=== PATIENT | female | born 1955 | race American Indian/Alaskan Native ===

== ENCOUNTER 2021-04-25 13:55 | Outpatient (CLI) | payer BC | END 2021-04-25 13:56 | disposition home or self-care (01) | LOC: CT 13:55 | PROVIDERS: ATTEND Nurse Practitioner Family | DX: R79.89 Other specified abnormal findings of blood chemistry (principal); R91.8 Other nonspecific abnormal finding of lung field | CPT/HCPCS: 71275; 82565 ==

== ENCOUNTER 2021-10-18 09:14 | Outpatient (CLI) | payer BC | END 2021-10-18 09:15 | disposition home or self-care (01) | LOC: BICULT 09:14 | PROVIDERS: ATTEND Student in an Organized Health Care Education/Training Program | DX: R74.01 Elevation of levels of liver transaminase levels (principal); K80.20 Calculus of gallbladder without cholecystitis without obstruction; K82.8 Other specified diseases of gallbladder | CPT/HCPCS: 76705 ==

== ENCOUNTER 2021-10-31 12:59 | Outpatient (CLI) | payer BC | END 2021-10-31 13:00 | disposition home or self-care (01) | LOC: RAD 12:59 | PROVIDERS: ATTEND Internal Medicine Pulmonary Disease | DX: R06.00 Dyspnea, unspecified (principal) | CPT/HCPCS: 71046 ==

== ENCOUNTER 2021-11-13 13:02 | Outpatient (CLI) | payer BC ==
[2021-11-13 13:42] LABS: #Basophils 0.1 10x3/uL (0.0-0.2); #Eosinphils 0.4 10x3/uL (0.0-0.5); #Monocytes 0.6 10x3/uL (0.0-1.1); %Basophils 1.7 % (0.0-2.0); %Eosinophils 6.1 % (0.0-6.0); %Lymphocytes 36.6 % (18.0-47.0); %Monocytes 9.3 % (0.0-10.0); Hemoglobin 12.1 g/dL (12.0-15.5); Mean Corpuscular HGB CONC 32.7 g/dL (32.0-36.0); Mean Corpuscular Hemoglobin 29.2 pg (27.0-33.0); Mean Corpuscular Volume 89.2 fl (81.6-98.3); Mean Platelet Volume 9.3 fl (7.4-10.4); Platelet Count 334 10x3/uL (150-450); RBC Distribution Width 13.8 % (11.5-14.5); Red Blood Cell (RBC) Count 4.15 10x6/uL (3.90-5.03); White Blood Cell (WBC) Count 6.6 10x3/uL (3.5-10.5)
[2021-11-13 14:04] LABS: ALT (SGPT) 62 U/L (8-55); AST (SGOT) 43 U/L (5-34); Alkaline Phosphatase 173 U/L (40-110); Anion Gap 14 mmol/L (10-20); BUN (Urea Nitrogen) 19 mg/dL (9.8-20.1); Bilirubin, Total 0.4 mg/dL (0.2-1.2); Calc. Creatinine Clearance 0 mL/min (70-130); Calcium 9.2 mg/dL (7.8-10.44); Carbon Dioxide 24 mmol/L (23-31); Chloride 107 mmol/L (98-107); Estimated GFR 80; Globulin 2.7 g/dL (2.4-3.5); Glucose 101 mg/dL (80-115); Potassium 4.7 mmol/L (3.5-5.1); Protein, Total 6.7 g/dL (5.8-8.1); Sodium 140 mmol/L (136-145)
== END 2021-11-13 13:03 | disposition home or self-care (01) ==
LOC: LABBT 13:02
PROVIDERS: ATTEND Specialist
DX: Z01.812 Encounter for preprocedural laboratory examination (principal); K80.50 Calculus of bile duct without cholangitis or cholecystitis without obstruction; Z20.822 Contact with and (suspected) exposure to COVID-19
CPT/HCPCS: 80053; 85025; 87811

== ENCOUNTER 2021-11-16 07:44 | Inpatient (IN) | payer BC, MEDICARE ==
[2021-11-15 11:03] VITALS: BMI 32.2
[2021-11-16] MEDS ORDERED: Ketorolac Tromethamine 30 MG/ML VIAL ONE ×2 (08:23→13:21)
[2021-11-16] MEDS ORDERED: Acetaminophen 500 MG TAB ONE (08:23)
[2021-11-16] MEDS ORDERED: Iopamidol 15 ML ONE (10:22)
[2021-11-16] MEDS ORDERED: Bupivacaine/Epinephrine 0.25% 30 ML VIAL ONE (10:22)
[2021-11-16] MEDS ORDERED: fentaNYL Citrate/PF 100 MCG/2 ML SYRINGE ONE (10:23)
[2021-11-16] MEDS ORDERED: Sodium Chloride 0.9% 100 ML ONE (10:35)
[2021-11-16] MEDS ORDERED: CEFAZOLIN 2 GM VIAL ONE (10:35)
[2021-11-16] MEDS ORDERED: PROPOFOL 200 MG/20 ML VIAL ONE (10:44)
[2021-11-16] MEDS ORDERED: Rocuronium Bromide 10 MG/ML (10ML VIAL) ONE (10:44)
[2021-11-16] MEDS ORDERED: Lidocaine 1% PF 5 ML VIAL ONE (10:44)
[2021-11-16] MEDS ORDERED: Glycopyrrolate 0.2 MG/ML 5 ML SYRINGE ONE (10:44)
[2021-11-16] MEDS ORDERED: Dexamethasone 20 MG/5 ML VIAL ONE (10:44)
[2021-11-16] MEDS ORDERED: Ondansetron PF 4 MG/2 ML Vial ONE ×2 (10:44→12:31)
[2021-11-16] MEDS ORDERED: Meperidine HCl/PF 25 MG/ML VIAL ONE (12:49)
[2021-11-16] MEDS ORDERED: hydrALAZINE 20 MG/ML VIAL SLOW IVP PRN (12:54)
[2021-11-16] MEDS ORDERED: Dextrose 50% Abboject 50 ML SYRINGE SLOW IVP PRN (12:54)
[2021-11-16] MEDS ORDERED: Ondansetron PF 4 MG/2 ML Vial IVP PRN (12:54)
[2021-11-16] MEDS ORDERED: Morphine 4 MG/ML VIAL SLOW IVP PRN (12:54)
[2021-11-16] MEDS ORDERED: Dextrose 5% in Water 1,000 ML IV PRN (12:54)
[2021-11-16] MEDS ORDERED: Calcium Carbonate 500 MG ChewTAB PO PRN (12:54)
[2021-11-16] MEDS ORDERED: Morphine 2 MG/ML VIAL SLOW IVP PRN (12:54)
[2021-11-16] MEDS ORDERED: Promethazine HCl 25 MG/ML VIAL IM PRN (12:54)
[2021-11-16] MEDS ORDERED: Mag-Al 1200 mg/1200 mg/30 ML UDCUP PO PRN (12:54)
[2021-11-16] MEDS ORDERED: Albuterol Sulfate 2.5 mg/0.5 ml Neb NEB PRN (13:15)
[2021-11-16] MEDS: D5 1/2 NS w/20 mEq KCL 1,000 ML IV SCH ×2 (15:43→23:18)
[2021-11-16] MEDS: Ketorolac Tromethamine 30 MG/ML VIAL IVP SCH ×2 (17:52→23:17)
[2021-11-16] MEDS: HYDROcodone/Acetaminophen 10/325 mg Tablet PO PRN (20:15)
[2021-11-16] MEDS: Famotidine 20 MG TAB PO SCH (20:16)
[2021-11-16] MEDS: Famotidine/PF 20 mg/2ml Vial SLOW IVP SCH (20:20)
[2021-11-16] MEDS ORDERED: Rosuvastatin 10 MG TAB PO SCH (21:00)
[2021-11-16] MEDS ORDERED: FLUoxetine HCl 20 MG CAP PO SCH (21:00)
[2021-11-17] MEDS: Ketorolac Tromethamine 30 MG/ML VIAL IVP SCH ×3 (04:57→18:04)
[2021-11-17 05:10] LABS: #Lymphocytes 1.7 thou/uL (1.20-3.40); #Monocytes 0.9 thou/uL (0.11-0.59); %Basophils 0.1 % (0.0-1.0); %Eosinophils 0.1 % (0.0-10.0); %Lymphocytes 14.9 % (21.0-51.0); %Monocytes 7.7 % (0.0-10.0); %Neutrophils 77.3 % (42.0-75.0); Hemoglobin 11.5 g/dL (12.0-16.0); Mean Corpuscular HGB CONC 32.5 g/dL (32.0-36.0); Mean Corpuscular Hemoglobin 30.2 pg (27.0-31.0); Mean Corpuscular Volume 92.7 fL (78.0-98.0); Mean Platelet Volume 7.3 fL (7.4-10.4); Platelet Count 303 thou/uL (130-400); RBC Distribution Width 12.7 % (11.5-14.5); Red Blood Cell (RBC) Count 3.82 mill/uL (4.20-5.40); White Blood Cell (WBC) Count 11.6 thou/uL (4.8-10.8)
[2021-11-17 05:28] LABS: ALT (SGPT) 44 U/L (8-55); AST (SGOT) 38 U/L (5-34); Albumin 3.3 g/dL (3.4-4.8); Alkaline Phosphatase 154 U/L (40-110); Anion Gap 12 mmol/L (10-20); BUN (Urea Nitrogen) 12 mg/dL (9.8-20.1); Bilirubin, Total 0.4 mg/dL (0.2-1.2); Calc. Creatinine Clearance 105 mL/min (70-130); Calcium 8.7 mg/dL (7.8-10.44); Carbon Dioxide 25 mmol/L (23-31); Chloride 107 mmol/L (98-107); Estimated GFR 84; Globulin 2.6 g/dL (2.4-3.5); Glucose 170 mg/dL (80-115); Potassium 4.8 mmol/L (3.5-5.1); Protein, Total 5.9 g/dL (5.8-8.1); Sodium 139 mmol/L (136-145)
[2021-11-17] MEDS: D5 1/2 NS w/20 mEq KCL 1,000 ML IV SCH (07:40)
[2021-11-17] MEDS ORDERED: Iopamidol 30 ML ONE (07:53)
[2021-11-17] MEDS ORDERED: Indomethacin 50 MG SUPP ONE (07:55)
[2021-11-17] MEDS ORDERED: Bupropion 150 MG XL TAB PO SCH (09:00)
[2021-11-17] MEDS ORDERED: Loratadine 10 MG TAB PO SCH (09:00)
[2021-11-17] MEDS: Famotidine 20 MG TAB PO SCH (09:14)
[2021-11-17] MEDS: Famotidine/PF 20 mg/2ml Vial SLOW IVP SCH (09:14)
[2021-11-17] MEDS ORDERED: Fentanyl 100 MCG/2 ML VIAL ONE ×2 (09:24→11:02)
[2021-11-17] MEDS ORDERED: Levofloxacin 500 mg/D5W 100 ml Premix Bag ONE (09:28)
[2021-11-17] MEDS ORDERED: Ondansetron PF 4 MG/2 ML Vial ONE (09:39)
[2021-11-17] MEDS ORDERED: Dexamethasone 20 MG/5 ML VIAL ONE (09:39)
[2021-11-17] MEDS ORDERED: ePHEDrine 50 MG/ML VIAL ONE (09:39)
[2021-11-17] MEDS ORDERED: Glycopyrrolate 0.2 MG/ML 5 ML SYRINGE ONE (09:39)
[2021-11-17] MEDS ORDERED: Rocuronium Bromide 10 MG/ML (10ML VIAL) ONE (09:39)
[2021-11-17] MEDS ORDERED: PROPOFOL 200 MG/20 ML VIAL ONE (09:39)
[2021-11-17] MEDS ORDERED: Lidocaine 1% PF 5 ML VIAL ONE (09:39)
[2021-11-17] MEDS ORDERED: Meperidine HCl/PF 25 MG/ML VIAL SLOW IVP PRN (10:57)
[2021-11-17] MEDS ORDERED: Promethazine HCl 25 MG/ML VIAL IM PRN (10:57)
[2021-11-17] MEDS ORDERED: Ondansetron HCl/PF 4 MG/2 ML Vial IVP PRN (10:57)
[2021-11-17] MEDS ORDERED: Promethazine HCl 25 MG/ML VIAL IVPB PRN (10:57)
[2021-11-17] MEDS ORDERED: Promethazine HCl 25 MG/ML VIAL ONE (11:13)
[2021-11-17] MEDS ORDERED: Ibuprofen 200 MG TAB PO PRN (11:23)
[2021-11-17] MEDS ORDERED: Non-Formulary Item 1 EACH (Fluticasone Propionate [Flonase Allergy Relief] 9.9 ML Bottle) EA NARE PRN (11:23)
[2021-11-17] MEDS ORDERED: Ibuprofen 800 MG TAB PO PRN (12:07)
[2021-11-17] MEDS ORDERED: Fluticasone Propionate Nasal Spray 16 gm Bottle NASAL PRN (12:08)
[2021-11-17] MEDS: HYDROcodone/Acetaminophen 10/325 mg Tablet PO PRN (16:09)
[2021-11-17 20:09] VITALS: BP 126/78; TEMP 98.2
[2021-11-18] MEDS ORDERED: Aspirin 325 MG TAB PO SCH (09:00)
== END 2021-11-17 19:40 | disposition home or self-care (01) | DRG 419 ==
LOC: SDC 07:44 → SURG A 13:05 → OBSVTOIN 13:10
PROVIDERS: ADMIT Specialist; ATTEND Specialist
PROC: 0FT44ZZ Resection of Gallbladder, Percutaneous Endoscopic Approach (ICD-10-PCS; principal; 2021-11-16)
PROC: 0DB94ZX Excision of Duodenum, Percutaneous Endoscopic Approach, Diagnostic (ICD-10-PCS; 2021-11-16)
PROC: BF131ZZ Fluoroscopy of Gallbladder and Bile Ducts using Low Osmolar Contrast (ICD-10-PCS; 2021-11-16)
PROC: 0F7C8ZZ Dilation of Ampulla of Vater, Via Natural or Artificial Opening Endoscopic (ICD-10-PCS; 2021-11-17)
PROC: BF101ZZ Fluoroscopy of Bile Ducts using Low Osmolar Contrast (ICD-10-PCS; 2021-11-17)
PROC: 0FC98ZZ Extirpation of Matter from Common Bile Duct, Via Natural or Artificial Opening Endoscopic (ICD-10-PCS; 2021-11-17)
PROC: 0DB98ZX Excision of Duodenum, Via Natural or Artificial Opening Endoscopic, Diagnostic (ICD-10-PCS; 2021-11-17)
PROC: 0DB68ZX Excision of Stomach, Via Natural or Artificial Opening Endoscopic, Diagnostic (ICD-10-PCS; 2021-11-17)
DX: K80.64 Calculus of gallbladder and bile duct with chronic cholecystitis without obstruction (principal); Z20.822 Contact with and (suspected) exposure to COVID-19; K29.70 Gastritis, unspecified, without bleeding; K26.9 Duodenal ulcer, unspecified as acute or chronic, without hemorrhage or perforation; F32.A Depression, unspecified; E78.5 Hyperlipidemia, unspecified; K29.80 Duodenitis without bleeding; Z79.899 Other long term (current) drug therapy; Z90.710 Acquired absence of both cervix and uterus
CPT/HCPCS: 36415; 47532; 74330; 80053; 85025; 88304; 88305; 88331; 88342; C1713; J0690; J1100; J1885; J1956; J2175; J2405; J2550; J2704; J2710; J3010; J3480; J3490; Q9967

== ENCOUNTER 2024-06-15 12:48 | Outpatient (CLI) | payer BC | END 2024-06-15 12:49 | disposition home or self-care (01) | LOC: BICMAMMO 12:48 | PROVIDERS: ATTEND Family Medicine | DX: Z12.31 Encounter for screening mammogram for malignant neoplasm of breast (principal) | CPT/HCPCS: 77063; 77067 ==